=== PATIENT | male | born 2000 | race African-American/Black ===

== ENCOUNTER 2023-01-03 13:08 | Emergency (ER) | payer OTHER ==
[~2023-01-03] VITALS: Ht 175.3 cm; Wt 102.4 kg
[2023-01-03 13:09] VITALS: BP 122/69; TEMP 98.2; O2SAT 98
== END 2023-01-03 17:05 | disposition home or self-care (01) ==
LOC: M ED 13:08
DX: Z20.3 Contact with and (suspected) exposure to rabies (principal)

== ENCOUNTER 2024-02-21 21:18 | Inpatient (IN) | payer OTHER ==
[~2024-02-21] VITALS: Ht 177.8 cm; Wt 95.5 kg
[2024-02-21 22:01] LABS: HEMATOCRIT 42.8 % (42.0-52.0); HEMOGLOBIN 14.3 g/dl (13.5-17.5); MEAN CORPUSCULAR HEMOGLOBIN 27.2 pg (27.0-33.0); MEAN CORPUSCULAR HGB CONC 33.4 g/dl (32.0-36.5); MEAN CORPUSCULAR VOLUME 81.5 fl (80.0-96.0); PLATELET COUNT, AUTOMATED 384 10^3/uL (150-450); RED BLOOD COUNT 5.25 10^6/uL (4.30-6.10); WHITE BLOOD COUNT 7.3 10^3/uL (4.0-10.0)
[2024-02-21 22:23] LABS: ETHYL ALCOHOL (ETHANOL) < 0.003 % (0.000-0.010)
[2024-02-21 22:24] LABS: SALICYLATE LEVEL < 3.0 MG/DL (<30)
[2024-02-21 22:25] LABS: ALKALINE PHOSPHATASE 84 U/L (46-116); ALT/SGPT 15 U/L (7.0-40); AST/SGOT 11 U/L (<34); BILIRUBIN,DIRECT 0.1 MG/DL (<0.4); BILIRUBIN,TOTAL 0.4 MG/DL (0.3-1.2); BLOOD UREA NITROGEN 10 MG/DL (9-23); CALCIUM LEVEL 9.6 MG/DL (8.5-10.1); CARBON DIOXIDE LEVEL 28 MMOL/L (20-31); CHLORIDE LEVEL 107 MMOL/L (98-107); CREATININE FOR GFR 0.92 MG/DL (0.70-1.30); GLOMERULAR FILTRATION RATE > 60.0 (>60); GLUCOSE, FASTING 83 MG/DL (60-100); POTASSIUM SERUM 3.9 MMOL/L (3.5-5.1); SODIUM LEVEL 138 MMOL/L (136-145); TOTAL PROTEIN 7.7 G/DL (5.7-8.2)
[2024-02-21 22:27] LABS: THYROID STIMULATING HORMONE 0.805 uIU/ML (0.55-4.78)
[2024-02-21] MEDS ORDERED: HOME MED LIST COMPLETE! XX SCH (22:35)
[2024-02-21 23:05] LABS: AMPHETAMINES LEVEL URINE NEGATIVE (NEGATIVE); BARBITURATES URINE NEGATIVE (NEGATIVE); BENZODIAZEPINES URINE NEGATIVE (NEGATIVE); COCAINE METABOLITE URINE NEGATIVE (NEGATIVE)
[2024-02-21 23:06] LABS: CANNABINOIDS URINE NEGATIVE (NEGATIVE); METHADONE URINE NEGATIVE (NEGATIVE); OPIATES URINE NEGATIVE (NEGATIVE); PHENCYCLIDINE URINE NEGATIVE (NEGATIVE)
[2024-02-22] MEDS ORDERED: diphenhydrAMINE 25MG CAP PO PRN (00:45)
[2024-02-22] MEDS ORDERED: MOM 30ML SUSPENSION UDC PO PRN (00:45)
[2024-02-22] MEDS ORDERED: MAALOX 30 ML SUSP *UDC PO PRN (00:45)
[2024-02-22] MEDS ORDERED: ACETAMINOPHEN 325 MG TAB PO PRN (00:45)
[2024-02-22 01:38] VITALS: BP 141/92; TEMP 98; O2SAT 99
[2024-02-22 06:11] VITALS: BP 145/65; TEMP 98.1; O2SAT 99
[2024-02-22] MEDS: ESCITALOPRAM OXALATE 10 MG TAB (LEXAPRO) PO SCH (09:38)
[2024-02-22] MEDS: NICOTINE 21MG/24HR 1 EA TRANSDERMAL TD SCH (09:38)
[2024-02-22 15:10] VITALS: BP 152/87; TEMP 97.1; O2SAT 98
[2024-02-22] MEDS: BACITRACIN OINTMENT 30GM TUBE TOP SCH (20:44)
[2024-02-23 06:26] VITALS: BP 126/57; TEMP 98.6; O2SAT 100
[2024-02-23 14:52] VITALS: BP 136/78; TEMP 98.3; O2SAT 97
[2024-02-23] MEDS: traZODone 50 MG TAB PO PRN (20:47)
[2024-02-24 06:55] VITALS: BP 118/60; TEMP 97.8
[2024-02-24] MEDS: IBUPROFEN 400MG TAB PO PRN (12:25)
[2024-02-24 15:08] VITALS: BP 128/70; TEMP 97.8; O2SAT 100
[2024-02-24] MEDS: LORazepam 1 MG TAB PO PRN (16:05)
[2024-02-25 06:32] VITALS: BP 119/62; TEMP 98; O2SAT 76
[2024-02-25 15:34] VITALS: BP 148/78; TEMP 97.6; O2SAT 99
[2024-02-26 06:09] VITALS: BP 151/65; TEMP 97.3; O2SAT 98
[2024-02-26] MEDS ORDERED: LEXA1TAB PO (10:30)
[2024-02-26] MEDS ORDERED: ATIV1TAB7 PO (10:30)
== END 2024-02-26 13:12 | disposition home or self-care (01) | DRG 881 ==
LOC: M ED 21:18 → M ED INP 02-22 00:18 → M PSY 02-22 01:08
PROVIDERS: ADMIT Psychiatry & Neurology Psychiatry; ATTEND Psychiatry & Neurology Psychiatry
DX: F32.9 Major depressive disorder, single episode, unspecified (principal); R45.851 Suicidal ideations; Z59.89 Other problems related to housing and economic circumstances; F17.200 Nicotine dependence, unspecified, uncomplicated